=== PATIENT | female | born 1970 | race Caucasian/White ===

== ENCOUNTER → 2020-11-29 16:02 | Outpatient (CLI) | payer OTHER, SELFPAY ==
--- NOTE | ~2020-11-29 | XR_ITS ---
EXAMINATION: XR lumbar spine 6V w bending EXAM DATE: 11/29/2020 17:10 INDICATION: Low back pain, more on the left side. TECHNIQUE: Lumber spine frontal, lateral, bilateral oblique projections. Coned down frontal and lat eral L5-S1 lumbar projections for interpretation. Additional lateral flexion and lateral extension p rojections obtained. There are no prior studies for comparison. FINDINGS: There is no spondylolysis. There is mild to moderate lumbar facet arthropathy. Mild disc di sease L3-4 and L4-5. There are no acute fractures identified. No erosive change. The lumbar vertebral bodies are aligned on all 3 lateral projections. Sacrum, sacroiliac joints, sacr al arcuate lines are intact. Paraspinal soft tissue is unremarkable. IMPRESSION: Mild to moderate lumbar facet arthropathy. Mild mid lumbar disc disease. Reviewed, dictated and finalized at location A. GEMENT TRAINEE IMPRESSION: Mild to moderate lumbar facet arthropathy. Mild mid lumbar disc di sease.
== END ==
PROVIDERS: PCP Family Medicine; Visit Provider Nurse Practitioner Adult Health
DX: M54.5 Low back pain (principal); M51.36 Other intervertebral disc degeneration, lumbar region
CPT/HCPCS: 72114

== ENCOUNTER 2021-01-04 09:31 | Outpatient (CLI) | payer OTHER, SELFPAY ==
--- NOTE | ~2021-01-04 | MM_ITS ---
EXAMINATION: MM screening [facility] BI w opal HISTORY: Screening mammogram TECHNIQUE: Craniocaudal and mediolateral oblique 3-D tomosynthesis images were obtained and synthetic 2-D images were generated. CAD analysis was submitted and interpreted. COMPARISON: 09/03/2010 BREAST PARENCHYMAL COMPOSITION: The breasts are heterogeneously dense, which may obscure small masses . FINDINGS: There is no evidence of suspicious mass, calcification, or architectural distortion to sugg est malignancy in either breast. There has been no suspicious interval change. IMPRESSION: 1. No mammographic evidence of malignancy. 2. Recommend routine screening mammography in one year. BI-RADS Category 1: Negative Reviewed, dictated and finalized at location A.
== END 2021-01-04 09:32 | disposition home or self-care (01) ==
LOC: ANHIMG 09:34
PROVIDERS: PCP Family Medicine; Visit Provider Obstetrics & Gynecology
DX: Z12.31 Encounter for screening mammogram for malignant neoplasm of breast (principal)
CPT/HCPCS: 77063; 77067

== ENCOUNTER 2021-01-23 09:51 | Outpatient (CLI) | payer OTHER, SELFPAY ==
--- NOTE | ~2021-01-23 | DEXA_ITS ---
Bone Density Report Name: Bette Chi Age: 50 Sex: Female Ethnicity: White Date of : 1970 Indication: height loss; prior fracture; Referring Provider: VALERIE TOWNSEND Study: Bone densitometry was performed. Exam Date: January 23, 2021 Accession number: [id number] Bone Density: Region BMD T-score Z-score Classification AP Spine (L1-L4) 1.236 1.7 2.6 Normal Femoral Neck (Left) 0.894 0.4 1.3 Normal Total Hip (Left) 0.980 0.3 0.9 Normal Total Hip Bilateral Avg 0.998 0.5 1.0 Normal Femoral Neck (Right) 0.931 0.7 1.6 Normal Total Hip (Right) 1.014 0.6 1.1 Normal World Health Organization criteria for BMD impression classify patients as: Normal (T-score at or above -1.0), Osteopenia (T-score between -1.0 and -2.5), or Osteoporosis (T-score at or below -2.5). 10-year Fracture Risk: FRAX not reported because: Premenopausal woman All T-scores for Spine Total, Hip Total, Femoral Neck at or above -1.0 Previous Exams: Region Exam Age BMD T-score BMD Change BMD Change Date g/cm2 vs Baseline vs Previous AP Spine(L1-L4) 01/23/2021 50 1.236 1.7 0.001(0.1%)# 0.001(0.1%)# 07/18/2008 37 1.235 1.7 Total Hip(Left) 01/23/2021 50 0.980 0.3 -0.025(-2.5%)# -0.025(-2.5%)# 07/18/2008 37 1.005 0.5 Total Hip(Right) 01/23/2021 50 1.014 0.6 -0.010(-1.0%)# -0.010(-1.0%)# 07/18/2008 37 1.024 0.7 *Denotes significance at 95% confidence level, LSC for AP Spine = 0.022 g/cm2, LSC for Total Hip = 0.027 g/cm2 Clinical Information Provided by Patient: Has had a low trauma fracture Has used the following medications: Vitamin D Patient maximum height was 67 Drinks caffeinated beverages Onset of menses at age 10 Premenopausal Number of children 3 Impression: The patient's bone mass is within expected range for age, gender and ethnicity. The patient has risk factors, including: previous fracture. No significant bone loss was observed. Discussion: BONE DENSITY IS WITHIN EXPECTED LIMITS FOR AGE, SEX AND RACE. Bone density is within expected limits for age, sex and race at all sites measured. The patient should follow a healthful lifestyle (good nutrition with adequate calcium and vitamin D, and appropriate weight-bearing exercise). Follow-Up: Consider repeating this study in 5 years or sooner if there is some new clinical indication. Reported by: MARANDA 01/23/2021 10:22:00 AM. Rev
== END 2021-01-23 09:52 | disposition home or self-care (01) ==
LOC: ANHIMG 09:52
PROVIDERS: PCP Family Medicine; Visit Provider Obstetrics & Gynecology
DX: R29.890 Loss of height (principal)
CPT/HCPCS: 77080

== ENCOUNTER → 2021-02-01 00:42 | Outpatient (CLI) | payer OTHER, SELFPAY ==
[2021-02-01 21:02] LABS: SARS-CoV-2 RNA PCR Negative
== END ==
PROVIDERS: PCP Family Medicine; Visit Provider Internal Medicine Gastroenterology
DX: Z01.812 Encounter for preprocedural laboratory examination (principal); Z20.822 Contact with and (suspected) exposure to COVID-19
CPT/HCPCS: C9803; U0003; U0005

== ENCOUNTER 2021-02-04 00:33 | Day surgery (SDC) | payer OTHER, SELFPAY ==
[2021-01-23 16:02] VITALS: BMI 27.1
[2021-02-04 06:20] VITALS: BP 120/76; PULSE 130; RESP 20; TEMP 36.5; O2SAT 99; BMI 27.0
[2021-02-04] MEDS: LACTATED RINGERS 1,000 ML 150 ML IV CONT (06:49)
--- NOTE | 2021-02-04 06:56 | P.HP_ITS ---
History of Present Illness History of Present Illness Consent: Risks, benefits, and alternatives have been discussed and questions answered. Patient agrees to proceed with procedure. Chief complaint: neoplasm screening Narrative: Bette Chi is a 50 year old female referred for colon cancer screening. There is no family history of colon cancer. Recently, while taking Flexeril, she became somewhat constipated resulting in a hemorrhoid flare up. Review of Systems Review of Systems: All systems reviewed & are unremarkable except as noted in HPI and below PMFSH Past Medical History Medical History Gestational diabetes No active medical problems Surgical History Surgical History H/O removal of cyst neck History of delivery 1987 Hx of tonsillectomy Family History Family History Father Diabetes mellitus Family history of hypercholesterolemia Hypertension Cerebrovascular accident Mother Cerebrovascular accident Social History Social History Smoking status: Never smoker Additional smoking assessment comments: pt only tried smoking back in her early high school days Alcohol intake: current Drinks per week: 3 Living arrangements: with family Additional occupation/education comments: Registered Nurse Gender identity (if verbalized by the patient): Female Spiritual care concerns: No Meds Home Medications and Allergies Home Medications Medication Instructions Recorded Confirmed Type acetaminophen 325 mg capsule 325 mg PO Q6H PRN 08/02/20 01/23/21 History cholecalciferol (vitamin D3) 25 25 mcg PO DAILY 08/02/20 01/23/21 History mcg (1,000 unit) capsule loratadine 10 mg tablet 10 mg PO DAILY 08/02/20 01/23/21 History mecobalamin (vitamin B12) 1,000 1,000 mcg PO DAILY 08/02/20 01/23/21 History mcg chewable tablet multivitamin,[id number]-uzic-[id number] 1 tablet PO DAILY 08/02/20 01/23/21 History naproxen 250 mg tablet 250 mg PO BID PRN 08/02/20 01/23/21 History cyclobenzaprine 10 mg tablet 10 mg PO TID PRN #90 tablet 01/17/21 01/23/21 Rx docusate sodium 100 mg PO DAILY PRN 01/23/21 01/23/21 History Allergies Allergy/AdvReac Type Severity Reaction Status Date / Time No Known Allergies Verified 02/04/21 06:19 Vital Signs Vital Signs - 24 hr 02/04/21 06:20 Temperature 36.5 C Pulse Rate 130 H Respiratory Rate 20 Blood Pressure 120/76 Pulse Oximetry 99 Exam 2 Resp: Auscultation: clear to auscultation bilaterally Cardio: Rate: regular rate Rhythm: regular rhythm GI: GI Palp: Yes Soft to palpation and No Tenderness to palpation present (GI) Assessment and Plan Assessment and plan (1) Colon cancer screening: Code(s): Z12.11 - Encounter for screening for malignant neoplasm of colon Status: Acute Assessment and Plan: Colonoscopy with possible biopsy or polypectomy or cautery or injection of substances.
--- NOTE | 2021-02-04 07:05 | WPDANESEPPF ---
Anes - Initial Pre Proc Eval Procedure: Operation Date: 02/04/21 07:30 Proposed Procedures p Screening Colonoscopy - Delroy Hogan MD Date/Time: 02/04/21 07:05 Surgeon: Delroy Hogan MD Pre Op Diagnosis: neoplasm screening Patient Data Age: 50 Gender: F Height: 5 ft 5 in Weight: 73.6 kg Last Vital Signs Temp 97.7 F 02/04/21 06:20 Pulse 130 H 02/04/21 06:20 Resp 20 02/04/21 06:20 BP 120/76 02/04/21 06:20 Pulse Ox 99 02/04/21 06:20 Allergies Allergy/AdvReac Type Severity Reaction Status Date / Time No Known Allergies Verified 02/04/21 06:19 Home Medications Medication Instructions Recorded Confirmed Type acetaminophen 325 mg capsule 325 mg PO Q6H PRN 08/02/20 01/23/21 History cholecalciferol (vitamin D3) 25 25 mcg PO DAILY 08/02/20 01/23/21 History mcg (1,000 unit) capsule loratadine 10 mg tablet 10 mg PO DAILY 08/02/20 01/23/21 History mecobalamin (vitamin B12) 1,000 1,000 mcg PO DAILY 08/02/20 01/23/21 History mcg chewable tablet multivitamin,[id number]-kxie-jvlrnfyc 1 tablet PO DAILY 08/02/20 01/23/21 History naproxen 250 mg tablet 250 mg PO BID PRN 08/02/20 01/23/21 History cyclobenzaprine 10 mg tablet 10 mg PO TID PRN #90 tablet 01/17/21 01/23/21 Rx docusate sodium 100 mg PO DAILY PRN 01/23/21 01/23/21 History Patient hx anesthesia problems: none Family hx anesthesia problems: none PMFSH Past Medical History Medical History Gestational diabetes No active medical problems Surgical History Surgical History H/O removal of cyst neck History of delivery 1988 Hx of tonsillectomy Family History Family History Father Diabetes mellitus Family history of hypercholesterolemia Hypertension Cerebrovascular accident Mother Cerebrovascular accident Social History Social History Smoking status: Never smoker Additional smoking assessment comments: pt only tried smoking back in her early high school days Alcohol intake: current Drinks per week: 3 Living arrangements: with family Additional occupation/education comments: Registered Nurse Gender identity (if verbalized by the patient): Female Spiritual care concerns: No Anes - Eval Final PreProcedure Day of Procedure 02/04/21 07:05 Patient weight: normal Heart: regular rate and rhythm Lungs: clear to auscultation Airway: Mallampati scale class II Neurological: alert and oriented Last oral intake: >/= 8 hours ASA classification: I Emergent: no Anesthetic plan: proceed Anesthesia type and monitoring: general GIVS and standard monitoring Informed Consent: The patient's anesthetic plan and its attendant risks and benefits were discussed with the patient/family/POA. Questions were solicited and answers provided to the satisfaction of the patient/family/POA.
[2021-02-04 07:23] VITALS: PULSE 107
[2021-02-04 07:57] VITALS: BP 109/53; PULSE 96; RESP 16; O2SAT 98
[2021-02-04 08:07] VITALS: BP 93/63; PULSE 84; RESP 16; O2SAT 100
[2021-02-04 08:17] VITALS: BP 92/68; PULSE 82; RESP 18; O2SAT 100
== END 2021-02-04 08:34 | disposition home or self-care (01) ==
PROVIDERS: PCP Family Medicine; Visit Provider Internal Medicine Gastroenterology
PROC: 0DJD8ZZ Inspection of Lower Intestinal Tract, Via Natural or Artificial Opening Endoscopic (ICD-10-PCS; CPT 45378; principal; 2021-02-04 07:30)
DX: Z12.11 Encounter for screening for malignant neoplasm of colon (principal); K64.8 Other hemorrhoids
CPT/HCPCS: 45378; J2001; J2704; J7120

== ENCOUNTER 2022-08-28 09:41 | Outpatient (CLI) | payer OTHER, SELFPAY ==
--- NOTE | 2022-08-28 11:30 | NEURO_ITS ---
Impression: # Complains of numbness of right hand. # Carpal Tunnel Syndrome with more involvement of sensory component particularly to the right index finger. # Normal needle/EMG exam. Motor Nerve Conduction Upper Extremities Median Nerve Conduction Velocity (m/sec) Terminal Latency (msec) Response Voltage(mV) Elbow-Wrist Wrist Elbow Wrist Right 44 3.5 2 4 Left Ulnar Nerve Conduction Velocity (m/sec) Terminal Latency (msec) Response Voltage(mV) Above Elbow Below Elbow Wrist Above Elbow Below Elbow Wrist Right 54 2.0 6 7 Left F-Wave Latency Median (ms) Ulnar (ms) Right 28.2 25.9 Left Sensory Nerve Conduction Upper Extremities Median Nerve Stimulation Terminal Latency (msec) Wrist/Digit Response Voltage (uV) Wrist Right NR/5.9 NR/88 Left Ulnar Nerve Stimulation Terminal Latency (msec) Wrist/Digit Response Voltage (uV) Wrist Right 2.1 55 Left Radial Nerve Terminal Latency (msec) Response Voltage(mV) Right 1.9 26 Left Left Right Muscles Examined Fibrillation Fasciculation Scarcity Voltage Duration Left Right Left Right Left Right Left Right Left Right X Deltoid X Biceps X Brachioradialis X Triceps X Pronator Teres X Ext Indicis X Ext Digitorum X Abd Poll Brev X 1st Dorsal Interosseus X Abd Dig MIn MTDD
== END 2022-08-28 09:42 | disposition home or self-care (01) ==
LOC: ANHNEURO 09:42
PROVIDERS: PCP Family Medicine; Visit Provider Nurse Practitioner
DX: R20.0 Anesthesia of skin (principal)
CPT/HCPCS: 95886; 95909

== ENCOUNTER 2022-12-22 13:12 | Outpatient (CLI) | payer OTHER, SELFPAY ==
[2022-12-22 14:02] LABS: Hematocrit 38.1 % (37.0-47.0); Hemoglobin 12.7 g/dL (12.0-15.0); Mean Corpuscular HGB Conc 33.3 g/dl (32-36); Mean Corpuscular Hemoglobin 32.8 pg (26-34); Mean Corpuscular Volume 98.4 fl (80-100); Mean Platelet Volume 9.9 fl (7.4-10.4); Platelet Count Result 241 k/mm3 (150-375); Red Blood Count 3.87 M/mm3 (4.2-5.4); Red Cell Distribution Width 12.3 % (11.5-14.5); White Blood Count 5.7 K/mm3 (4.5-10.0)
[2022-12-22 14:20] LABS: Alanine Aminotransferase 31 U/L (6-35); Albumin Level 4.6 g/dL (3.5-5.1); Alkaline Phosphatase 90 U/L (38-126); Anion Gap 5 mmol/L (8-16); Aspartate Amino Transferase 31 U/L (14-36); Bilirubin,Total 0.4 mg/dL (0.2-1.3); Blood Urea Nitrogen 11 mg/dL (7-17); Calcium 8.9 mg/dL (8.4-10.2); Carbon Dioxide 30 mmol/L (22-30); Chloride 102 mmol/L (98-107); Cholesterol 235 mg/dL (0-200); Estimated Glomerular Filt Rate > 60; Glucose 93 mg/dL (65-110); HDL Direct 61 mg/dL; Potassium 3.8 mmol/L (3.4-5.0); Sodium 137 mmol/L (137-145); Triglycerides 121 mg/dL (<150)
[2022-12-22 14:30] LABS: LDL Cholesterol Direct 124 mg/dL
[2022-12-22 14:38] LABS: Vitamin D 25 Hydroxy 98.8 ng/mL
== END 2022-12-22 13:13 | disposition home or self-care (01) ==
LOC: ANHLAB 13:14
PROVIDERS: PCP Family Medicine; Visit Provider Nurse Practitioner
DX: E55.9 Vitamin D deficiency, unspecified (principal); Z13.6 Encounter for screening for cardiovascular disorders; F41.8 Other specified anxiety disorders; Z13.220 Encounter for screening for lipoid disorders
CPT/HCPCS: 36415; 80053; 80061; 82306; 84443; 85027

== ENCOUNTER 2023-03-20 07:57 | Outpatient (CLI) | payer OTHER, SELFPAY ==
--- NOTE | ~2023-03-20 | MM_ITS ---
EXAMINATION: MM screening [facility] BI w opal HISTORY: Screening mammogram TECHNIQUE: Craniocaudal and mediolateral oblique 3-D tomosynthesis images were obtained and synthetic 2-D images were generated. CAD analysis was submitted and interpreted. COMPARISON: 01/04/2021, 09/03/2010 BREAST PARENCHYMAL COMPOSITION:The breasts are heterogeneously dense, which may obscure small masses. FINDINGS: There is a probable stable low-density outer left subareolar mass. No suspicious mass, calc ification, or architectural distortion are identified in either breast to suggest malignancy. There h as been no suspicious interval change. IMPRESSION: No mammographic evidence of malignancy. Recommend routine screening mammography in one year. BI-RADS Category 2: Benign finding(s). Reviewed, dictated and finalized at location .
== END 2023-03-20 07:58 | disposition home or self-care (01) ==
LOC: ANHIMG 07:58
PROVIDERS: PCP Family Medicine; Visit Provider Obstetrics & Gynecology
DX: Z12.31 Encounter for screening mammogram for malignant neoplasm of breast (principal)
CPT/HCPCS: 77063; 77067

== ENCOUNTER 2023-03-26 09:44 | Outpatient (CLI) | payer OTHER, SELFPAY | END 2023-03-26 09:45 | disposition home or self-care (01) | LOC: ANHAUDIO 09:44 | PROVIDERS: PCP Family Medicine; Visit Provider Family Medicine | DX: H91.90 Unspecified hearing loss, unspecified ear (principal) | CPT/HCPCS: 92557; 92567 ==

== ENCOUNTER 2023-05-19 10:00 | Outpatient (RCR) | payer OTHER, SELFPAY | END 2023-05-19 23:59 | disposition home or self-care (01) | LOC: ANHAUDIO 10:00 | PROVIDERS: PCP Family Medicine; Visit Provider Family Medicine | DX: Z46.1 Encounter for fitting and adjustment of hearing aid (principal) | CPT/HCPCS: 99199; V5261 ==

== ENCOUNTER 2023-06-03 08:54 | Outpatient (CLI) | payer OTHER, SELFPAY ==
[2023-06-03 09:56] LABS: Alanine Aminotransferase 34 U/L (6-35); Albumin Level 4.2 g/dL (3.5-5.1); Alkaline Phosphatase 80 U/L (38-126); Anion Gap 4 mmol/L (8-16); Aspartate Amino Transferase 28 U/L (14-36); Bilirubin,Total 0.4 mg/dL (0.2-1.3); Blood Urea Nitrogen 14 mg/dL (7-17); Calcium 8.5 mg/dL (8.4-10.2); Carbon Dioxide 25 mmol/L (22-30); Chloride 106 mmol/L (98-107); Cholesterol 227 mg/dL (0-200); Estimated Glomerular Filt Rate > 60; Glucose 91 mg/dL (65-110); HDL Direct 63 mg/dL; Potassium 4.3 mmol/L (3.4-5.0); Sodium 135 mmol/L (137-145); Triglycerides 99 mg/dL (<150)
[2023-06-03 10:07] LABS: LDL Cholesterol Direct 127 mg/dL
[2023-06-03 10:25] LABS: Thyroid Stimulating Hormone 0.852 uIU/mL (0.465-4.680)
== END 2023-06-03 08:55 | disposition home or self-care (01) ==
PROVIDERS: PCP Family Medicine; Visit Provider Family Medicine
DX: E78.5 Hyperlipidemia, unspecified (principal); R63.5 Abnormal weight gain
CPT/HCPCS: 36415; 80053; 80061; 84443

== ENCOUNTER 2023-11-26 11:07 | Outpatient (CLI) | payer OTHER, SELFPAY ==
--- NOTE | ~2023-11-26 | XR_ITS ---
Left foot Technique: AP, oblique, and lateral views were obtained. Clinical History: Pain Findings: No acute fracture or dislocation is seen. Osseous alignment is anatomic. Joint spaces are p reserved without erosive or degenerative change. Soft tissues are unremarkable. Impression: Unremarkable left foot radiographs. Reviewed, dictated and finalized at location . Y GUN REPAIRER Impression: Unremarkable left foot radiographs.
--- NOTE | ~2023-11-26 | XR_ITS ---
Right foot Technique: AP, oblique, and lateral views were obtained. Clinical History: Pain Findings: No acute fracture or dislocation is seen. There is severe degenerative change of the first MTP joint. Soft tissues are unremarkable. 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 Reviewed, dictated and finalized at location . 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
--- NOTE | ~2023-11-26 | XR_ITS ---
Left ankle Technique: AP, oblique, and lateral views were obtained. Clinical History: Pain Findings: No acute fracture or dislocation is seen. Osseous alignment is anatomic. Ankle mortise and other visualized joint spaces are preserved. Soft tissues are otherwise unremarkable. Impression: Unremarkable left ankle. Reviewed, dictated and finalized at location . MOTIVE SERVICE ADVISOR Impression: Unremarkable left ankle.
== END 2023-11-26 11:08 ==
PROVIDERS: PCP Family Medicine; Visit Provider Family Medicine
DX: M25.572 Pain in left ankle and joints of left foot (principal); M79.672 Pain in left foot; M19.071 Primary osteoarthritis, right ankle and foot
CPT/HCPCS: 73610; 73630

== ENCOUNTER 2023-12-04 08:49 | Outpatient (CLI) | payer OTHER, SELFPAY ==
[2023-12-04 09:42] LABS: Hematocrit 37.3 % (37.0-47.0); Hemoglobin 11.9 g/dL (12.0-15.0); Mean Corpuscular HGB Conc 31.9 g/dl (32-36); Mean Corpuscular Hemoglobin 32.2 pg (26-34); Mean Corpuscular Volume 101.1 fl (80-100); Mean Platelet Volume 10.1 fl (7.4-10.4); Platelet Count Result 238 k/mm3 (150-375); Red Blood Count 3.69 M/mm3 (4.2-5.4); Red Cell Distribution Width 12.3 % (11.5-14.5); White Blood Count 4.9 K/mm3 (4.5-10.0)
[2023-12-04 09:59] LABS: Alanine Aminotransferase 24 U/L (6-35); Alkaline Phosphatase 89 U/L (38-126); Anion Gap 3 mmol/L (8-16); Aspartate Amino Transferase 26 U/L (14-36); Bilirubin,Total 0.4 mg/dL (0.2-1.3); Blood Urea Nitrogen 13 mg/dL (7-17); Calcium 8.7 mg/dL (8.4-10.2); Carbon Dioxide 30 mmol/L (22-30); Chloride 105 mmol/L (98-107); Cholesterol 214 mg/dL (0-200); Estimated Glomerular Filt Rate > 60; Glucose 97 mg/dL (65-110); HDL Direct 55 mg/dL; Potassium 4.1 mmol/L (3.4-5.0); Sodium 138 mmol/L (137-145); Triglycerides 70 mg/dL (<150)
[2023-12-04 10:11] LABS: LDL Cholesterol Direct 123 mg/dL
== END 2023-12-04 08:50 | disposition home or self-care (01) ==
PROVIDERS: PCP Family Medicine; Visit Provider Family Medicine
DX: E66.9 Obesity, unspecified (principal); E78.5 Hyperlipidemia, unspecified
CPT/HCPCS: 36415; 80053; 80061; 84443; 85027

== ENCOUNTER 2024-03-29 09:15 | Outpatient (CLI) | payer OTHER, SELFPAY ==
[2024-03-29 10:21] LABS: Hemoglobin 11.9 g/dL (12.0-15.0); Mean Corpuscular HGB Conc 32.2 g/dl (32-36); Mean Corpuscular Hemoglobin 33.2 pg (26-34); Mean Corpuscular Volume 103.4 fl (80-100); Platelet Count Result 257 k/mm3 (150-375); Red Blood Count 3.58 M/mm3 (4.2-5.4); Red Cell Distribution Width 12.6 % (11.5-14.5); White Blood Count 5.7 K/mm3 (4.5-10.0)
[2024-03-29 10:33] LABS: Iron 53 ug/dL (37-170)
[2024-03-29 10:46] LABS: Percent Iron Saturation 16 % (20-50)
[2024-03-29 11:55] LABS: Alanine Aminotransferase 56 U/L (6-35); Albumin Level 4.3 g/dL (3.5-5.1); Alkaline Phosphatase 95 U/L (38-126); Anion Gap 7 mmol/L (4-12); Aspartate Amino Transferase 37 U/L (14-36); Bilirubin,Total 0.4 mg/dL (0.2-1.3); Blood Urea Nitrogen 19 mg/dL (7-17); Calcium 8.9 mg/dL (8.4-10.2); Carbon Dioxide 27 mmol/L (22-30); Chloride 105 mmol/L (98-107); Cholesterol 235 mg/dL (0-200); Estimated Glomerular Filt Rate > 60; Glucose 98 mg/dL (65-110); HDL Direct 61 mg/dL; Potassium 4.2 mmol/L (3.4-5.0); Sodium 139 mmol/L (137-145); Triglycerides 77 mg/dL (<150)
[2024-03-29 12:07] LABS: LDL Cholesterol Direct 144 mg/dL
[2024-03-29 13:10] LABS: Folic Acid > 20.0 ng/mL (2.76->20); Vitamin B12 > 1000.0 pg/mL (239-931)
== END 2024-03-29 09:16 | disposition home or self-care (01) ==
LOC: ANHLAB 09:16
PROVIDERS: PCP Family Medicine; Visit Provider Family Medicine
DX: D64.9 Anemia, unspecified (principal); Z79.899 Other long term (current) drug therapy; E66.9 Obesity, unspecified; E78.5 Hyperlipidemia, unspecified; F41.8 Other specified anxiety disorders
CPT/HCPCS: 36415; 80053; 80061; 82607; 82728; 82746; 83540; 83550; 84443; 85027

== ENCOUNTER 2024-05-04 16:24 | Outpatient (CLI) | payer OTHER, SELFPAY ==
--- NOTE | ~2024-05-04 | XR_ITS ---
XR elbow LT min 3V 05/04/2024 16:53 INDICATION: Left elbow pain PROCEDURE: 4 views left elbow COMPARISON: No prior studies for comparison. FINDINGS: Fracture, dislocation or subluxation is not identified. No significant joint effusion. The soft tissues appear within normal limits. No foreign bodies are identified. IMPRESSION: 1: NO ACUTE BONE OR JOINT ABNORMALITY IDENTIFIED. Reviewed, dictated and finalized at location B.
== END 2024-05-04 16:25 ==
LOC: GOSHIMG 16:25
PROVIDERS: PCP Family Medicine; Visit Provider Nurse Practitioner
DX: M25.522 Pain in left elbow (principal)
CPT/HCPCS: 73080

== ENCOUNTER 2024-11-11 21:20 | Emergency (ER) | payer OTHER, SELFPAY ==
--- OUTSIDE RECORDS SUMMARY | 2024-11-11 21:21 | XMS_ITS | Clinical Summary ---
Author Organization [facility] Address [address] [place] [address]. [place] [address] [place] [address] Care Team Providers Care Turbine Subassembler Name Role Phone Unavailable Primary Care Provider Unavailabl e Encounters Date Type Department Care Team Description 10/07/2024 3:52 PM ARMHOLE SEWER - 10/07/2024 11:59 PM ARMHOLE SEWER Hospital Encounter [facility] [place] [address] Juan José Reid MD Discharge Disposition: Home or Self Care (Routine Discharge) from Last 3 Months Social History Tobacco Use Types Packs/Day Years Used Date Smoking Tobacco: Never Assessed Comments Unknown Sex and Gender Information Value Date Recorded Sex Assigned at Not on file Legal Sex Female 3:50 PM ARMHOLE SEWER Gender Identity Not on file Sexual Orientation Not on file Plan of Treatment Health Maintenance Due Date Last Done Comments Cervical Cancer Screening Pa p Smear (Age 30 to 64) Every 3 Years 1970 Colorectal Cancer Screening Colonoscopy (10 Years) 1968 Annual Physical 1971 Hepatitis C 1986 DTaP, Tdap and Td Vaccines ( 1 - Tdap) 1987 Hepatitis B Vaccines (1 of 3 - 19+ 3-dose series) 1987 Cervical Cancer Screening Pa p with HPV Testing (Age 30 to 64) Every 5 Years 1998 Cervical Cancer Screening with HPV 1998 Mammogram Screening 2008 Zoster Vaccines (1 of 2) 2018 COVID-19 Vaccine (2023-2 5 season) 2024 Influenza Adult (#1) 2024 Meningococcal B Vaccine Aged Out No l onger eligible based on patient's age to complete this topic Meningococcal Vaccine Aged Out No donald kuldeep eligible based on patient's age to complete this topic Pneumococcal Vaccine: Pediat rics (0 to 5 Years) and At-Risk Patients (6 to 64 Years) Aged Out No longer eligible b ased on patient's age to complete this topic RSV Immunizations Under 20 Months Aged Out No longer eligible based on patient's age to complete this topic Procedures Procedure Name Priority Date/Time Associated Diagnosis Comments PATHOLOGY Routine 10/07/2024 12:00 AM ARMHOLE SEWER from Last 3 Months Results * Pathology (10/07/2024 12:00 AM ARMHOLE SEWER) PATHOLOGY [facility] ? Department of Laboratory Medicine ?[address] [facility] ?[place] [address] ? , extension [phone] ? Pathology Report ? Surgical Pathology Report Name: LEE CHI ? Specimen #: [id number] Age: 2 1970 (Age: 53) ? Location: [facility] Sex: F ?Procedure Date: 10/07/2024 Hospital #: [id number] ?Date Received: 10/10/2024 Date Reported: 10/13/2024 Provider: JUAN JOSÉ REID MD Source: Mouth, cyst Clinical History: Multiple oral lesions. FINAL DIAGNOSIS: Oral lesion, excision: ? 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 -Negative for cyst or malignancy Deeper levels performed on both blocks. IC: JOY Gross Description: Received in formalin, labeled with the patient's name and date of and as oral lesions are 2 pieces of nodular white-nino tissue 0.3 and 0.4 cm. ??The base is identified on one of the pieces and inked black. ??This piece is bisected. ??These pieces are entirely submitted in cassette 1. ??Also within the specimen container are 2 additional firm white nodules 0.5 and 0.7 cm. ??The base is identified and inked black on both of these pieces. ??They are both bisected and entirely submitted in cassette 2. Gross examination (when applicable) was performed at [facility], [address] [place] [address]. This case was interpreted and signed out at [facility], [address] [place] [address]. ?? Electronically Signed Out ? ELSI TAPIA MD [facility] 10/07/2024 10/10/2024 12: 10 PM ARMHOLE SEWER Comment:Mouth, cyst Juan José Reid MD PATHOLOGY/CYTOLOGY ORDERABLES Final Result [facility] [address] [place] [address], [id number] from Last 3 Months
[2024-11-11 21:25] VITALS: BP 141/78; PULSE 115; RESP 19; TEMP 36.6; O2SAT 100
[2024-11-11 21:38] LABS: Basophils Percent Auto 0.3 % (0.2-1.2); Eosinophils Absolute Auto 0.6 K/mm3 (0-0.3); Hematocrit 38.1 % (37.0-47.0); Hemoglobin 12.7 g/dL (12.0-15.0); Immature Granulocyte Absolute 0.06 K/mm3 (0.00-0.031); Immature Granulocyte Percent A 0.4 % (0-0.5); Lymphocytes Absolute Auto 1.05 K/mm3 (0.9-3.2); Lymphocytes Percent Auto 7.4 % (18.3-44.2); Mean Corpuscular HGB Conc 33.3 g/dl (32-36); Mean Corpuscular Hemoglobin 33.2 pg (26-34); Mean Corpuscular Volume 99.7 fl (80-100); Mean Platelet Volume 9.5 fl (7.4-10.4); Monocytes Absolute Auto 0.6 K/mm3 (0.1-0.6); Monocytes Percent Auto 4.3 % (2.6-8.5); Neutrophils Absolute Auto 11.8 K/mm3 (1.3-6.7); Neutrophils Percent Auto 83.6 % (45.5-73.1); Platelet Count Result 241 k/mm3 (150-375); Red Blood Count 3.82 M/mm3 (4.2-5.4); Red Cell Distribution Width 11.9 % (11.5-14.5); White Blood Count 14.1 K/mm3 (4.5-10.0)
[2024-11-11 21:49] LABS: Alanine Aminotransferase 35 U/L (6-35); Albumin Level 4.5 g/dL (3.5-5.1); Alkaline Phosphatase 129 U/L (38-126); Anion Gap 10 mmol/L (4-12); Aspartate Amino Transferase 26 U/L (14-36); Bilirubin,Total 0.6 mg/dL (0.2-1.3); Blood Urea Nitrogen 13 mg/dL (7-17); Calcium 9.7 mg/dL (8.4-10.2); Carbon Dioxide 27 mmol/L (22-30); Chloride 100 mmol/L (98-107); Estimated CRCL calculation 109 ml/min; Estimated Glomerular Filt Rate > 60; Glucose 111 mg/dL (65-110); Lipase 52 U/L (23-300); Potassium 3.8 mmol/L (3.4-5.0); Sodium 137 mmol/L (137-145)
[2024-11-11 22:59] LABS: BEDSIDEPREGUCG Negative (Negative)
[2024-11-11 23:08] LABS: Add Urine Microscopic? YES; Appearance Urine Clear (Clear); Bacteria Urine None Seen /hpf; Bilirubin Urine Negative (Negative); Blood Urine Negative (Negative); Color Urine Yellow (Yellow); Glucose Urine UA Negative (Negative); Ketones Urine Negative (Negative); Leukocyte Esterase Ur Trace LEU/UL (Negative); Nitrate Urine Negative (Negative); Non Pathogenic Casts 0-2; Protein Urine Negative (Negative); RBC Urine 0-2 /hpf (0-2); Specific Grav Ur 1.008 (1.001-1.035); Squamous Epithelial Cell Urine Occasional /hpf (Few); Urobilinogen Urine 0.2 mg/dL (<2.0); WBC Urine 0-5 /hpf (0-3); pH Urine 6.5 (5.0-9.0)
--- NOTE | 2024-11-12 00:56 | ED.ABDPAIN ---
HPI - Abdominal Pain General Chief Complaint: Abdominal Pain Stated Complaint: Gallbladder Time Seen by Provider: 11/12/24 00:32 History of Present Illness HPI narrative: Patient is a 54-year-old female who presents ER with epigastric pain. Sudden onset this afternoon. Lasted for several hours. Mild improvement after taking a muscle relaxer. Associated with nausea. Has history of gallstones I have not been giving her issues since 2007. No fevers or chills or sweats. No diarrhea. Patient does note that she had a rash for which she was on a prednisone taper that she recently finished. No worsening of the rash. There are scabs, she reports she picks regularly. Mainly located on abdomen, back, and around the hairline of the scalp posteriorly. Related Data Home Medications ?Medication ?Instructions ?Recorded ?Confirmed ?Last Taken ?Type cholecalciferol (vitamin D3) 25 25 mcg PO DAILY 08/02/20 11/02/24 02/02/21 History mcg (1,000 unit) capsule loratadine 10 mg tablet (Claritin) 10 mg PO DAILY 08/02/20 11/02/24 02/02/21 History mecobalamin (vitamin B12) 1,000 1,000 mcg PO DAILY 08/02/20 11/02/24 02/02/21 History mcg chewable tablet multivitamin,zx-nfuh-ricinvne 1 tablet PO DAILY 08/02/20 11/02/24 02/02/21 History (Complete Multivitamin tablet) naproxen 250 mg tablet 250 mg PO BID PRN Back Pain 08/02/20 11/02/24 02/02/21 History docusate sodium 100 mg PO DAILY PRN Constipation 01/23/21 11/02/24 02/02/21 History Allergies Allergy/AdvReac Type Severity Reaction Status Date / Time No Known Allergies Allergy Verified 11/11/24 21:21 Review of Systems Review of Systems: All systems reviewed & are unremarkable except as noted in HPI and below Constitutional: Constitutional: Reports no additional constitutional complaints Cardiovascular: Cardiovascular: Reports no additional cardiovascular complaints Respiratory: Respiratory: Reports no additional respiratory complaints Gastrointestinal: Gastrointestinal: Reports no additional gastrointestinal complaints ON LICENSE OF [facility] Past Medical History Medical History Gestational diabetes No active medical problems Surgical History Surgical History H/O removal of cyst neck Hx of tonsillectomy History of delivery 1987 Family History Family History Father Diabetes mellitus Family history of hypercholesterolemia Hypertension Cerebrovascular accident Mother Cerebrovascular accident Social History Social History Smoking status: Never smoker Additional smoking assessment comments: pt only tried smoking back in her early high school days Alcohol intake: current Alcohol use details: social Substance use: never Lack of Transportation: No Lack of Food: Never True Current Housing: I Have Housing Concerned About Future Housing: No Difficulty Paying Gas/Electric Bills: No Difficulty Paying for Meds: No Currently Unemployed: No Education: Associate Degree Difficulty w/ Childcare or Family Care: No Living arrangements: with family Occupation/Education: occupation Additional occupation/education comments: Registered Nurse Gender identity (if verbalized by the patient): Female Spiritual care concerns: No Exam Narrative: GENERAL: Well-appearing, well-nourished, and in no acute distress. HEAD: Normocephalic, atraumatic. ENT: Mucous membranes moist. CHEST: Clear to auscultation. No respiratory distress. HEART: Regular rate and rhythm. Normal peripheral pulses. ABDOMEN: Soft, nontender, nondistended. EXTREMITIES: Normal range of motion. No edema. SKIN: Warm, dry, scabbing to old rash, no cellulitis or Homans. NEURO: Alert and oriented x3. PSYCH: Normal mood and affect. Course Course Emergency Course: Pain resolve on my evaluation. Suspect biliary colic. Mild white blood cell count elevation that could be from colic or from prednisone. Patient felt to have acute cholecystitis given exam. Recommend pain control, low-fat diet, follow-up with general surgery. Discussed return precautions. Vital Signs Vital signs: Vital Signs Temperature 98 F 11/11/24 21:25 Pulse Rate 115 H 11/11/24 21:25 Respiratory Rate 19 11/11/24 21:25 Blood Pressure 141/78 H 11/11/24 21:25 Pulse Oximetry 100 11/11/24 21:25 Oxygen Delivery Room Air 11/11/24 21:25 Temperature 98 F 11/11/24 21:25 Pulse Rate 115 H 11/11/24 21:25 Respiratory Rate 19 11/11/24 21:25 Blood Pressure 141/78 H 11/11/24 21:25 Pulse Oximetry 100 11/11/24 21:25 Oxygen Delivery Room Air 11/11/24 21:25 MDM - Abdominal Pain Lab Data 11/11/24 21:32 11/11/24 21:32 Labs: Lab Results 11/11/24 11/11/24 11/11/24 Range/Units 21:32 22:56 22:57 WBC 14.1 H (4.5-10.0) K/mm3 RBC 3.82 L (4.2-5.4) M/mm3 Hgb 12.7 (12.0-15.0) g/dL Hct 38.1 (37.0-47.0) % MCV 99.7 (80-100) fl MCH 33.2 (26-34) pg MCHC 33.3 (32-36) g/dl RDW 11.9 (11.5-14.5) % Plt Count 241 (150-375) k/mm3 MPV 9.5 (7.4-10.4) fl Immature Gran % (Auto) 0.4 (0-0.5) % Neut % (Auto) 83.6 H (45.5-73.1) % Lymph % (Auto) 7.4 L (18.3-44.2) % [place] % (Auto) 4.3 (2.6-8.5) % Eos % (Auto) 4.0 (0-4.4) % Baso % (Auto) 0.3 (0.2-1.2) % Lymph # (Auto) 1.05 (0.9-3.2) K/mm3 [place] # (Auto) 0.6 (0.1-0.6) K/mm3 Eos # (Auto) 0.6 H (0-0.3) K/mm3 Baso # (Auto) 0.0 (0.0-0.1) K/mm3 Abs Immat Gran (auto) 0.06 H (0.00-0.031) K/mm3 Absolute Neuts (auto) 11.8 H (1.3-6.7) K/mm3 Absolute Nucleated RBC 0.000 (0.0-0.012) K/mm3 Nucleated RBC % 0.0 (0.0-0.2) % Sodium 137 (137-145) mmol/L Potassium 3.8 (3.4-5.0) mmol/L Chloride 100 (98-107) mmol/L Carbon Dioxide 27 (22-30) mmol/L Anion Gap 10 (4-12) mmol/L BUN 13 D (7-17) mg/dL Creatinine 0.53 L (0.7-1.0) mg/dL Estim Creat Clear Calc 109 ml/min Estimated GFR > 60 (59 - ) Glucose 111 H (65-110) mg/dL Calcium 9.7 (8.4-10.2) mg/dL Total Bilirubin 0.6 (0.2-1.3) mg/dL AST 26 (14-36) U/L ALT 35 (6-35) U/L Alkaline Phosphatase 129 H (38-126) U/L Total Protein 8.0 (6.3-8.2) g/dL Albumin 4.5 (3.5-5.1) g/dL Lipase 52 (23-300) U/L Urine Color Yellow (Yellow) Urine Appearance Clear (Clear) Urine pH 6.5 (5.0-9.0) Ur Specific [place] 1.008 (1.001-1.035) Urine Protein Negative (Negative) mg/dL Urine Glucose (UA) Negative (Negative) mg/dL Urine Ketones Negative (Negative) mg/dL Ur Blood (Man) Negative (Negative) Urine Nitrate Negative (Negative) Urine Bilirubin Negative (Negative) Urine Urobilinogen 0.2 (<2.0) mg/dL Leukocyte Esterase Rfl Trace H (Negative) ADRIANE/UL Urine RBC 0-2 (0-2) /hpf Urine WBC 0-5 (0-3) /hpf Ur Squamous Epith Cells Occasional (Few) /hpf Urine Bacteria None seen /hpf Urine Casts 0-2 POC Urine HCG, Qual Negative (Negative) Discharge Plan Discharge Clinical Impression: Colicky epigastric pain Patient Disposition: Home, Self-Care Condition: Stable Instructions: Biliary Colic (ED), Low Fat Diet (ED) Additional Instructions: Return to the emergency department if you develop severe abdominal pain, severe nausea and vomiting to the point where you are unable to keep down fluids, if you develop chest pain or difficulty breathing, blood in your stool, dizziness or fainting, or if you develop any other new or concerning symptoms as these could be signs of more serious medical illness. Try to stay well hydrated. Patient Language: Cuban Prescriptions: New hydrocodone-acetaminophen 5-325 mg tablet 1 tablet PO Q6H PRN (Reason: pain) Qty: 10 0RF ondansetron 4 mg tablet,disintegrating 4 mg PO Q6H PRN (Reason: nausea and vomiting) Qty: 10 0RF No Action Complete Multivitamin Tablet 1 tablet PO DAILY mecobalamin (vitamin B12) 1,000 mcg tablet,chewable 1,000 mcg PO DAILY cholecalciferol (vitamin D3) 25 mcg (1,000 unit) capsule 25 mcg PO DAILY loratadine [Claritin] 10 mg tablet 10 mg PO DAILY naproxen 250 mg tablet 250 mg PO BID PRN (Reason: Back Pain) docusate sodium 100 mg PO DAILY PRN (Reason: Constipation) paroxetine HCl 30 mg tablet See Rx Instructions .ROUTE .COMPLEX Qty: 90 1RF Dose Instruction: TAKE 1 TABLET BY MOUTH DAILY Rx Instructions: TAKE 1 TABLET BY MOUTH DAILY cyclobenzaprine 10 mg tablet 10 mg PO DAILY PRN (Reason: muscle spasm) Qty: 90 1RF phentermine 30 mg capsule 30 mg PO QAM Qty: 30 1RF Rx Instructions: must administer 2 hours after breakfast prednisone 10 mg tablet 10 mg PO DIRECTED Qty: 42 0RF Rx Instructions: see taper instructions: Take 6 pills daily for two days, then 5 pills daily for two days, then 4 pills daily for two days, then 3 pills daily for two days, then 2 pills daily for two days, then 1 pill daily for two days, the stop. Follow-up/Referrals: Alicia Garrett MD [Physician] - 1 Week Melisa Gates DO [Primary Care Provider] - 1 Week
[2024-11-12 01:02] VITALS: BP 117/71; PULSE 100; RESP 14; TEMP 36.8; O2SAT 100
--- OUTSIDE RECORDS SUMMARY | 2024-11-12 01:05 | XMS_ITS | Clinical Summary ---
Author Organization [facility] Address [address] [place] [address]. [place] [address] [place] [address] Care Team Providers Care Manager Data Center Name Role Phone Unavailable Primary Care Provider Unavailabl e Encounters Date Type Department Care Team Description 10/07/2024 3:52 PM CITY MANAGER - 10/07/2024 11:59 PM CITY MANAGER Hospital Encounter [facility] [place] [address] Juan José Reid MD Discharge Disposition: Home or Self Care (Routine Discharge) from Last 3 Months Social History Tobacco Use Types Packs/Day Years Used Date Smoking Tobacco: Never Assessed Comments Unknown Sex and Gender Information Value Date Recorded Sex Assigned at Not on file Legal Sex Female 3:50 PM CITY MANAGER Gender Identity Not on file Sexual Orientation [...] Diagnosis Comments PATHOLOGY Routine 10/07/2024 12:00 AM CITY MANAGER from Last 3 Months Results * Pathology (10/07/2024 12:00 AM CITY MANAGER) PATHOLOGY [facility] ? Department of Laboratory Medicine ?[address] [facility] [address] ?[place] [address] ? , extension [phone] ? Pathology Report ? Surgical Pathology Report Name: LEE CHI ? Specimen #: [id number] Age: 2 1970 (Age: 53) ? Location: [facility] Sex: F ?Procedure Date: 10/07/2024 Hospital #: [id number] ?Date Received: 10/10/2024 Date Reported: 10/13/2024 Provider: [...] Gross examination (when applicable) was performed at [facility], [address] [place] [address]. This case was interpreted and signed out at [facility], [address] [place] [address]. ?? Electronically Signed Out ? ELSI TAPIA MD [facility] 10/07/2024 10/10/2024 12: 10 PM CITY MANAGER Comment:Mouth, cyst Juan José Reid MD PATHOLOGY/CYTOLOGY ORDERABLES Final Result [facility] [address] [place] [address], [id number] from Last 3 Months
== END 2024-11-12 01:14 | disposition home or self-care (01) ==
LOC: ANHED 11-12 01:03
PROVIDERS: Emergency Provider Emergency Medicine; PCP Family Medicine
DX: R10.13 Epigastric pain (principal); Z79.899 Other long term (current) drug therapy
CPT/HCPCS: 36415; 80053; 81001; 81025; 83690; 85025; 99283

== ENCOUNTER 2024-11-18 09:35 | Outpatient (CLI) | payer OTHER, SELFPAY ==
[2024-11-18 09:58] LABS: Hematocrit 33.7 % (37.0-47.0); Hemoglobin 11.1 g/dL (12.0-15.0); Mean Corpuscular HGB Conc 32.9 g/dl (32-36); Mean Corpuscular Hemoglobin 32.7 pg (26-34); Mean Corpuscular Volume 99.4 fl (80-100); Mean Platelet Volume 9.2 fl (7.4-10.4); Platelet Count Result 255 k/mm3 (150-375); Red Blood Count 3.39 M/mm3 (4.2-5.4); Red Cell Distribution Width 11.9 % (11.5-14.5); White Blood Count 7.7 K/mm3 (4.5-10.0)
--- OUTSIDE RECORDS SUMMARY | 2024-11-18 10:11 | XMS_ITS | Clinical Summary ---
Author Organization [facility] Address [address] [place] [address] Care Team Providers Care Wire Bender Name Role Phone Unavailable Primary Care Provider Unavailabl e Encounters Date Type Department Care Team Description 10/07/2024 3:52 PM APPRAISAL ANALYST - 10/07/2024 11:59 PM APPRAISAL ANALYST Hospital Encounter [facility] [place] [address] Juan José Reid MD Discharge Disposition: Home or Self Care (Routine Discharge) from Last 3 Months Social History Tobacco Use Types Packs/Day Years Used Date Smoking Tobacco: Never Assessed Comments Unknown Sex and Gender Information Value Date Recorded Sex Assigned at Not on file Legal Sex Female 3:50 PM APPRAISAL ANALYST Gender Identity Not on file Sexual Orientation [...] Diagnosis Comments PATHOLOGY Routine 10/07/2024 12:00 AM APPRAISAL ANALYST from Last 3 Months Results * Pathology (10/07/2024 12:00 AM APPRAISAL ANALYST) PATHOLOGY [facility] Department of Laboratory Medicine [address] [place] [address] , extension [phone] Pathology Report Surgical Pathology Report Name: LEE CHI Specimen #: [id number] Age: 2 1970 (Age: 53) Location: [facility] Sex: F Procedure Date: 10/07/2024 Hospital #: [id number] Date Received: 10/10/2024 Date Reported: 10/13/2024 Provider: JUAN JOSÉ REID MD Source: Mouth, cyst Clinical History: Multiple oral lesions. 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 IC: JOY Gross Description: Received in formalin, labeled with the patient's name and date of and as oral lesions are 2 pieces of nodular white-nino tissue 0.3 and 0.4 cm. The base is identified on one of the pieces and inked black. This piece is bisected. These pieces are entirely submitted in cassette 1. Also within the specimen container are 2 additional firm white nodules 0.5 and 0.7 cm. The base is identified and inked black on both of these pieces. They are both bisected and entirely submitted in cassette 2. Gross examination (when applicable) was performed at [facility], [address] [place] [address]. This case was interpreted and signed out at [facility], [address] [place] [address]. Electronically Signed Out ELSI TAPIA MD [facility] 10/07/2024 10/10/2024 12: 10 PM APPRAISAL ANALYST Comment:Mouth, cyst Juan José Reid MD PATHOLOGY/CYTOLOGY ORDERABLES Final Result [facility] [address] [place] [address], [id number] from Last 3 Months
[2024-11-18 10:12] LABS: Alanine Aminotransferase 27 U/L (6-35); Alkaline Phosphatase 105 U/L (38-126); Anion Gap 10 mmol/L (4-12); Aspartate Amino Transferase 25 U/L (14-36); Bilirubin,Total 0.6 mg/dL (0.2-1.3); Blood Urea Nitrogen 14 mg/dL (7-17); Calcium 8.8 mg/dL (8.4-10.2); Carbon Dioxide 27 mmol/L (22-30); Chloride 103 mmol/L (98-107); Cholesterol 188 mg/dL (0-200); Estimated Glomerular Filt Rate > 60; Glucose 93 mg/dL (65-110); HDL Direct 50 mg/dL; Sodium 140 mmol/L (137-145); Triglycerides 58 mg/dL (<150)
[2024-11-18 10:23] LABS: LDL Cholesterol Direct 104 mg/dL
[2024-11-18 10:36] LABS: Vitamin D 25 Hydroxy 52.6 ng/mL
[2024-11-18 10:44] LABS: Thyroid Stimulating Hormone 0.655 uIU/mL (0.465-4.680)
== END 2024-11-18 09:36 | disposition home or self-care (01) ==
LOC: ANHLAB 09:36
PROVIDERS: PCP Family Medicine; Visit Provider Nurse Practitioner
DX: Z00.00 Encounter for general adult medical examination without abnormal findings (principal); E55.9 Vitamin D deficiency, unspecified; E53.8 Deficiency of other specified B group vitamins
CPT/HCPCS: 36415; 80053; 80061; 82306; 82607; 84443; 85027

== ENCOUNTER 2024-11-21 10:48 | Outpatient (CLI) | payer OTHER, SELFPAY ==
[2024-11-21 13:40] LABS: Influenza A QL RT-PCR Negative (Negative); Influenza B QL RT-PCR Negative (Negative); RSV RNA, RT-PCR Negative (Negative); SARS-CoV-2 RNA PCR Negative (Negative)
== END 2024-11-21 10:49 | disposition home or self-care (01) ==
LOC: ANHGOSHLAB 10:49
PROVIDERS: PCP Family Medicine; Visit Provider Nurse Practitioner
DX: R50.9 Fever, unspecified (principal); Z20.822 Contact with and (suspected) exposure to COVID-19
CPT/HCPCS: 87637

== ENCOUNTER 2024-11-22 09:24 | Outpatient (CLI) | payer OTHER, SELFPAY ==
--- NOTE | ~2024-11-22 | US_ITS ---
Limited Abdominal Sonogram: Real-time sonographic imaging of the right upper quadrant was performed. Clinical History: Gallbladder disease Findings: The liver appears echogenic, with no evidence of mass lesion or bile duct dilatation. Main portal vein demonstrates normal direction of flow. The gallbladder is well distended, and contains e chogenic, shadowing gallstone. Gallbladder wall mildly thickened up to 5 mm. The common bile duct jacinto sures 6 mm. The visualized pancreas, aorta, and IVC are unremarkable. Impression: Cholelithiasis. Mild gallbladder wall thickening could indicate acute cholecystitis. Correlate clinic ally. Consider HIDA scan as indicated. Diffuse fatty infiltration of the liver. Reviewed, dictated and finalized at location [facility]. GING MANIPULATOR Impression: Cholelithiasis. Mild gallbladder wall thickening could indicate acute cholecyst itis. Correlate clinically. Consider HIDA scan as indicated. Diffuse fatty infiltration of the liver.
== END 2024-11-22 09:25 | disposition home or self-care (01) ==
PROVIDERS: PCP Nurse Practitioner; Visit Provider Nurse Practitioner
DX: K76.0 Fatty (change of) liver, not elsewhere classified (principal); K80.20 Calculus of gallbladder without cholecystitis without obstruction
CPT/HCPCS: 76705

== ENCOUNTER 2024-11-24 08:29 | Outpatient (CLI) | payer OTHER, SELFPAY ==
--- NOTE | ~2024-11-24 | NM_ITS ---
EXAMINATION: NM hepatobiliary wo pharm DATE: 11/24/2024 12:46 INDICATION: Cholelithiasis without acute cholecystitis COMPARISON: None. TECHNIQUE: 4.9 mCi Tc-99m mebrofenin (Choletec) was administered intravenously. Scintigraphic images of the abdomen were obtained for one hour. Additional one-hour and 4 hour delayed scintigrams were o btained in the anterior and right lateral projections. FINDINGS: There is normal clearance of radiotracer from the blood pool. There is homogeneous tracer u ptake by the liver. Activity progresses to the bowel with duodenal and common bile duct activity fir st evident on the 15 minute delayed image. There is progressive filling of the small bowel over the n ext 45 minutes of imaging with no evident gallbladder activity during the first hour of imaging. Smal l amount of activity is seen in the gallbladder on the 4 hour delayed images the majority of activity in the bowels. IMPRESSION: 1. Delayed activity accumulation in the gallbladder which could be seen with chronic cholecystitis b ut which argues against acute calculus cholecystitis. Reviewed, dictated and finalized at location [facility]. RAM PROFESSIONAL IMPRESSION: 1. Delayed activity accumulation in the gallbladder which could be seen with c hronic cholecystitis but which argues against acute calculus cholecystitis.
--- OUTSIDE RECORDS SUMMARY | 2024-11-24 08:33 | XMS_ITS | Clinical Summary ---
Author Organization [facility] Address [address] [place] [address] Care Team Providers Care Bookmobile Driver Name Role Phone Unavailable Primary Care Provider Unavailabl e Encounters Date Type Department Care Team Description 10/07/2024 3:52 PM POST DOCTORAL RESEARCHER - 10/07/2024 11:59 PM POST DOCTORAL RESEARCHER Hospital Encounter [facility] [place] [address] Juan José Reid MD Discharge Disposition: Home or Self Care (Routine Discharge) from Last 3 Months Social History Tobacco Use Types Packs/Day Years Used Date Smoking Tobacco: Never Assessed Comments Unknown Sex and Gender Information Value Date Recorded Sex Assigned at Not on file Legal Sex Female 3:50 PM POST DOCTORAL RESEARCHER Gender Identity Not on file Sexual Orientation [...] Diagnosis Comments PATHOLOGY Routine 10/07/2024 12:00 AM POST DOCTORAL RESEARCHER from Last 3 Months Results * Pathology (10/07/2024 12:00 AM POST DOCTORAL RESEARCHER) PATHOLOGY [facility] Department of Laboratory Medicine [address] [place] [address] , extension [phone] Pathology Report Surgical Pathology Report Name: LEE CHI Specimen #: [id number] Age: 2 1970 (Age: 53) Location: [facility] Sex: F Procedure Date: 10/07/2024 Hospital #: [id number] Date Received: 10/10/2024 Date Reported: 10/13/2024 Provider: [...] Gross examination (when applicable) was performed at [facility], [address] [place] [address]. This case was interpreted and signed out at [facility], [address] [place] [address]. Electronically Signed Out ELSI TAPIA MD [facility] 10/07/2024 10/10/2024 12: 10 PM POST DOCTORAL RESEARCHER Comment:Mouth, cyst Juan José Reid MD PATHOLOGY/CYTOLOGY ORDERABLES Final Result [facility] [address] [place] [address], [id number] from Last 3 Months
== END 2024-11-24 08:30 | disposition home or self-care (01) ==
LOC: ANHIMG 08:30
PROVIDERS: PCP Nurse Practitioner; Visit Provider Nurse Practitioner
DX: K80.20 Calculus of gallbladder without cholecystitis without obstruction (principal)
CPT/HCPCS: 78226; A9537

== ENCOUNTER 2024-12-05 03:13 | Day surgery (SDC) | payer OTHER, SELFPAY ==
[2024-11-29 10:14] VITALS: BMI 27.8
--- NOTE | 2024-11-29 10:15 | PC.NURSE ---
Report to the Outpatient Waiting Room, entrance under the green pavilion located off [facility], at time _1230_ on date _[id number]_. Planned Procedure Time: _230pm_.? Time changes happen often and if your time is changed the preop area will call you the afternoon before. - You and your visitor will be asked to self-screen and do not enter if you have any COVID symptoms. Please call surgeon if you need to reschedule. - A mask is optional within the hospital at this time. Patients may have clear liquids (water, carbonated beverages, clear teas, apple juice) until 3 hours prior to surgery with a maximum of 20 ounces. - No food from midnight until time of surgery and no smoking, or chewing tobacco (or any form of nicotine). No chewing gum, candy or mints. Take only the following medications with a SIP of water on the morning of surgery: ____Pain and Nausea med ok. DO NOT STOP ANY OF YOUR OTHER PRESCRIPTION MEDICATIONS PRIOR TO SURGERY EXCEPT THE FOLLOWING Hold all vitamins and supplements for 3 days per anesthesiologist. Medications to discontinue per physician Date to take last pblz__[id number]____Mphumjj is going to not take naproxen and understands that narcotic pain medicine or Acetaminophen is OK to take. Please no make-up, nail norwegian, hairspray, perfume, deodorant, or body powder the day of surgery.? No jewelry (including any body piercings) or valuables the day of surgery, leave them at home.? Please take a shower or bath the night before, or the morning of, surgery with an antibacterial soap.? Wear comfortable, loose fitting clothing.? - Jewelry must be removed prior to entering the operating room.? Rings and piercings that are not removed may be cut off. - The hospital will not accept responsibility for valuables.? - Please leave all valuables, including medications, at home the day of surgery. If you are going home after surgery, a licensed hydraulic lift driver must drive you home.? - NO public transportation without another adult if you receive anesthesia. - We recommend that an adult stay with you for 24 hours following discharge. - We also recommend that you do not drive, make important decision, drink alcoholic beverages, or take any drugs that were not prescribed by your health care provider for at least 24 hours after your discharge time. Follow any additional instructions given to you from your surgeon. Telephone instructions given to __Bette___and asked if any additional questions and then verbalized understanding. Patient advised to call surgeon office or pre surgery nurse liaison [phone] if any additional questions.
[2024-12-05] VITALS (11 sets, daily range): BP systolic 103–116; BP diastolic 56–71; PULSE 88–106; RESP 12–18; TEMP 36–36.3; O2SAT 95–100; BMI 28.0
--- OUTSIDE RECORDS SUMMARY | 2024-12-05 03:19 | XMS_ITS | Clinical Summary ---
Author Organization [facility] Address [address] [place] [address] Care Team Providers Care Gaming Host Name Role Phone Unavailable Primary Care Provider Unavailabl e Encounters Date Type Department Care Team Description 10/07/2024 3:52 PM FORESTRY CONSERVATION WORKER - 10/07/2024 11:59 PM FORESTRY CONSERVATION WORKER Hospital Encounter [facility] [place] [address] Juan José Reid MD Discharge Disposition: Home or Self Care (Routine Discharge) from Last 3 Months Social History Tobacco Use Types Packs/Day Years Used Date Smoking Tobacco: Never Assessed Comments Unknown Sex and Gender Information Value Date Recorded Sex Assigned at Not on file Legal Sex Female 3:50 PM FORESTRY CONSERVATION WORKER Gender Identity Not on file Sexual Orientation [...] Diagnosis Comments PATHOLOGY Routine 10/07/2024 12:00 AM FORESTRY CONSERVATION WORKER from Last 3 Months Results * Pathology (10/07/2024 12:00 AM FORESTRY CONSERVATION WORKER) PATHOLOGY [facility] Department of Laboratory Medicine [address] [place] [address] , extension [phone] Pathology Report Surgical Pathology Report Name: LEE CHI Specimen #: [id number] Age: 2 1970 (Age: 53) Location: [facility] Sex: F Procedure Date: 10/07/2024 Hospital #: [id number] Date Received: 10/10/2024 Date Reported: 10/13/2024 Provider: [...] examination (when applicable) was performed at [facility], [address] [place] [address]. This case was interpreted and signed out at [facility], [address] [place] [address]. Electronically Signed Out ELSI TAPIA MD [facility] 10/07/2024 10/10/2024 12: 10 PM FORESTRY CONSERVATION WORKER Comment:Mouth, cyst Juan José Reid MD PATHOLOGY/CYTOLOGY ORDERABLES Final Result [facility] [address] [place] [address], [id number] from Last 3 Months
[2024-12-05] MEDS: ACETAMINOPHEN 500 MG TABLET 1000 MG PO (13:38)
[2024-12-05] MEDS: KETOROLAC 15 MG/ML VIAL (*BKC) IV PUSH (13:38)
[2024-12-05 14:19] LABS: Amylase 60 U/L (30-110)
--- NOTE | 2024-12-05 14:41 | WPDHPUPDATE1 ---
History and Physical Update Update Date/Time: 12/05/24 14:41 History and Physical has been reviewed, including an updated exam of the patient. There are NO changes in the patient's condition. There was an error on the plan and the procedure will be laparoscopic cholecystectomy, possible open (not with cholangiogram). Risks, benefits, and alternatives have been discussed and questions answered. Patient agrees to proceed with procedure.
--- NOTE | 2024-12-05 14:54 | P.PNAN_ITS ---
Anes - Initial Pre Proc Eval Procedure: Operation Date: 12/05/24 14:30 Proposed Procedures p Laparoscopic Cholecystectomy - Kenton Mtz DO Date/Time: 12/05/24 14:54 Surgeon: Kenton Mtz DO Pre Op Diagnosis: acute calculous cholecystitis Patient Data Age: 54 Gender: F Height: 1.68 m Weight: 78.75 kg Last Vital Signs Temp 97.4 F L 12/05/24 13:33 Pulse 98 12/05/24 13:33 BP 109/60 12/05/24 13:33 Pulse Ox 99 12/05/24 13:33 O2 Del Method Room Air 12/05/24 13:33 Allergies Allergy/AdvReac Type Severity Reaction Status Date / Time No Known Allergies Allergy Verified 11/29/24 10:05 Home Medications ?Medication ?Instructions ?Recorded ?Confirmed ?Type loratadine 10 mg tablet (Claritin) 10 mg PO DAILY 08/02/20 11/29/24 History multivitamin,ez-wjvv-subukqvl 1 tablet PO DAILY 08/02/20 11/29/24 History (Complete Multivitamin tablet) naproxen 250 mg tablet 250 mg PO BID PRN Back Pain 08/02/20 11/29/24 History docusate sodium 100 mg PO DAILY PRN Constipation 01/23/21 11/29/24 History cyclobenzaprine 10 mg tablet 10 mg PO DAILY PRN muscle spasm 10/10/24 11/29/24 Rx #90 tabs hydrocodone 5 mg-acetaminophen 325 1 tablet PO Q6H PRN pain #10 tabs 11/12/24 11/29/24 Rx mg tablet ondansetron 4 mg disintegrating 4 mg PO Q6H PRN nausea and 11/12/24 11/29/24 Rx tablet vomiting #10 tabs cholecalciferol (vitamin D3) 25 50 mcg PO DAILY 11/21/24 11/29/24 History mcg (1,000 unit) capsule mecobalamin (vitamin B12) 1,000 1,000 mcg PO .once a week 11/21/24 11/29/24 History mcg chewable tablet paroxetine HCl 30 mg tablet See Rx Instructions .Route 11/24/24 11/29/24 Rx .COMPLEX #90 tabs Laboratory Tests 12/05/24 12:52 Amylase 60 U/L (30-110) Patient hx anesthesia problems: other (Woke up combative after GI anesthetic in the past. ) Family hx anesthesia problems: none Results Review: All pre-operative results and documents have been reviewed as part of the pre- operative evaluation. [facility] Past Medical History Medical History Gallbladder disorder Arthritis Anxiety Allergies Anemia Gestational diabetes No active medical problems Surgical History Surgical History H/O removal of cyst neck Hx of tonsillectomy History of delivery 1987 Family History Family History Father Diabetes mellitus Family history of hypercholesterolemia Hypertension Cerebrovascular accident Mother Cerebrovascular accident Social History Social History Smoking status: Never smoker Additional smoking assessment comments: pt only tried smoking back in her early high school days Alcohol intake: current Alcohol use details: social Substance use: never Lack of Transportation: No Lack of Food: Never True Current Housing: I Have Housing Concerned About Future Housing: No Difficulty Paying Gas/Electric Bills: No Difficulty Paying for Meds: No Currently Unemployed: No Education: Associate Degree Difficulty w/ Childcare or Family Care: No Living arrangements: with family Occupation/Education: occupation Additional occupation/education comments: Registered Nurse Gender identity (if verbalized by the patient): Female Spiritual care concerns: No Anes - Eval Final PreProcedure Day of Procedure 12/05/24 14:54 Patient weight: overweight Lungs: normal air movement Airway: Mallampati scale class II Neurological: alert and oriented Last oral intake: >/= 8 hours ASA classification: II Emergent: no Anesthetic plan: proceed Anesthesia type and monitoring: general ETT and standard monitoring Results Review: All pre-operative results and documents have been reviewed as part of the pre- operative evaluation. BMI 28. Informed Consent: The patient's anesthetic plan and its attendant risks and benefits were discussed with the patient/family/POA. Questions were solicited and answers provided to the satisfaction of the patient/family/POA.
[2024-12-05] MEDS: LACTATED RINGERS 1,000 ML 30 ML IV CONT ×2 (14:57→17:18)
[2024-12-05] MEDS: ceFAZolin 2 GM/D5W 50 ML 2 GM/50 ML BAG IVPB (15:02)
[2024-12-05] MEDS: BUPIVACAINE/EPINEPHRINE 0.5% 30 ML VIAL 15 ML INFILTRATE (15:02)
--- NOTE | 2024-12-05 17:01 | P.OP_ITS ---
Procedure Note - Detailed Date of Procedure 12/05/24 Pre-op Diagnosis acute calculous cholecystitis Post-op Diagnosis Same (Gallbladder hydrops) Procedure Performed Laparoscopic cholecystectomy Surgeon Kenton Mtz, DO Anesthesia General and Local (0.5% bupivacaine) Indications This is a 54-year-old woman who presented with a history of gallstones and biliary colic. She had presented to the emergency department on 11/11/2024 with complaints of epigastric abdominal pain that started earlier that day. She was noted to have an elevated white blood count but she had also recently been on prednisone for a rash. No imaging was done that evening. She then followed up with her PCP and had a gallbladder ultrasound which showed evidence of cholelithiasis and gallbladder wall thickening. A HIDA scan was then also performed which showed delayed filling of the gallbladder consistent with chronic cholecystitis. Discussions were made with the patient about treatment options and decision was made to proceed with laparoscopic cholecystectomy, possible open. Findings Laparoscopic cholecystectomy was performed. The gallbladder was found to have significant pericholecystic adhesions that appeared both acute and chronic. The gallbladder was extensively adhesed making the surgery very difficult. There was omentum as well as the pylorus and duodenum densely adherent around the gallbladder. There was also dense indurated tissue around the neck of the gallbladder and cystic duct which made it very difficult to dissect. The gallbladder had a very large gallstone in the neck of the gallbladder. There was also evidence of gallbladder hydrops with clear mucus bile within the gallbladder. Eventually I was able to identify the cystic duct and obtain a critical view of safety. Due to the dense adhesions and blood loss, decision was made to place a 19 round Song drain and placed the patient in outpatient extended recovery postoperatively. The surgery was much more difficult than a typical laparoscopic cholecystectomy and took 1 hour and 52 minutes which is 2-3 times as long as a typical uncomplicated laparoscopic cholecystectomy. Blood loss was also about 100 mL which is about 5 times as much as an uncomplicated laparoscopic cholecystectomy. Description of Procedure Procedure as well as risks, benefits, and alternatives were discussed with patient. Written consent was obtained and placed in chart prior to procedure. The patient was brought back to surgical suite. Patient was placed in supine position on operating table. Time-out was done to confirm patient and procedure. Patient was then intubated by the anesthesia department. Abdomen was prepped and draped in sterile fashion using chlorhexidine prep. 0.5% bupivacaine with epinephrine was infiltrated at each site of incision. A 5 millimeter incision was made near the umbilicus, and a 5 millimeter Optiview trocar was advanced through the abdominal layers under direct visualization. Once inside the abdominal cavity, carbon dioxide was insufflated to create a pneumoperitoneum. The camera was inserted and the abdomen was inspected. No immediate abnormalities were identified. The patient was placed in reverse Trendelenburg position and rotated slightly to the left. An 11 millimeter incision was made in the subxiphoid region, and an 11 millimeter trocar was inserted under direct visualization. Two 5 millimeter incisions were made in the right upper quadrant, and two 5 millimeter trocars were inserted under direct visualization. Initially the gallbladder was difficult to identify due to omental adhesions around the entire fundus of the gallbladder and caudal edge of the right lobe of the liver. These adhesions were carefully taken down using blunt dissection and hook electrocautery. The gallbladder was then identified and grasped at the fundus and retracted superiorly. I continued to take down the adhesions using blunt dissection and hook electrocautery until I could identify the entire body of the gallbladder and infundibulum. It was then grasped at the infundibulum retracted laterally. Careful dissection around the neck of the gallbladder was performed using blunt dissection with a [place] grasper and hook electrocautery. The cystic duct was identified, and a window was created behind it. The cystic artery was also identified and a window was created behind it. The critical view of safety was identified, visualizing the cystic duct running directly into the neck of the gallbladder, and the cystic artery running directly into the wall of the gallbladder. A 5 millimeter clip glass processing worker was then used to place 2 clips proximally and 1 clip distally on both the cystic duct and cystic artery. They were then both transected using endoscopic scissors. Once safely away from the paul hepatitis, the gallbladder was dissected free from the liver bed using hook electrocautery. Hemostasis was achieved along the way. The gallbladder was removed completely and then removed through the subxiphoid port. The liver bed was then inspected. Hemostasis appeared adequate, and our clips appeared secure. The area was gently irrigated with sterile saline. I then chose to place a 19 round Song drain into the gallbladder fossa and secured this through 1 of the port sites with a 3-0 nylon drain stitch. No other abnormalities were seen. The patient was flattened out in bed, and 1 final inspection was made around the abdominal cavity. The remaining ports were then removed under direct visualization, the camera was removed, and the pneumoperitoneum was released. The fascia of the subxiphoid incision was reapproximated using an 0 Vicryl [id number]-et-rmeic suture. The skin of the incisions was approximated using 4-0 Monocryl subcuticular sutures. Exofin glue was applied on top. The patient was then awakened from anesthesia, extubated, and transferred to recovery. Estimated Blood Loss 100 Drains Yes (19 round Song) Pathology Yes (Gallbladder) Complications No immediate complications Condition Stable Disposition Observation [facility] Billing Surgery - Charge Forward: Surgery Billing
--- NOTE | 2024-12-05 18:30 | SUR.PHASEI ---
Patient meets PACU discharge criteria, unit bed unavailable at this time. Patient placed in extended recovery status.
[2024-12-05] MEDS: LACTATED RINGERS 1,000 ML 100 ML IV CONT (20:35)
[2024-12-05] MEDS: HYDROcodone/acetaminophen (*CRX) 10-325 MG TABLET 1 TAB PO (20:38)
--- NOTE | 2024-12-05 20:43 | ADMGEN ---
This patient, Bette Chi, was admitted to 3 [facility] Surg Room 327-01. Patient/family oriented to hospital policies and general routines including ID bracelet, bed and alarms, visiting hours, pain management, procedures, bathroom and other care routines, personal items, smoking policy, room service/diet, and visiting hours. Information on how to activate the Rapid Response Team has been discussed. Patient/Family are encouraged to report perceived risks to care and to ask questions if they do not understand what they are told or what they should do.
[2024-12-05] MEDS: diphenhydrAMINE HCl INJ 50 MG/ML VIAL 25 MG IV PUSH (21:31)
[2024-12-05] MEDS: metroNIDAZOLE 500 MG/ISO 100ML 500 MG/100 ML BAG 100 MG IVPB (21:31)
[2024-12-06] MEDS: HYDROcodone/acetaminophen (*CRX) 10-325 MG TABLET 1 TAB PO ×3 (01:28→11:41)
[2024-12-06 01:30] VITALS: BP 101/49; PULSE 87; RESP 14; TEMP 36.3; O2SAT 100
[2024-12-06 05:30] VITALS: BP 97/49; PULSE 89; RESP 14; TEMP 36.3; O2SAT 100
[2024-12-06] MEDS: diphenhydrAMINE HCl INJ 50 MG/ML VIAL 25 MG IV PUSH (05:35)
[2024-12-06] MEDS: metroNIDAZOLE 500 MG/ISO 100ML 500 MG/100 ML BAG 100 MG IVPB (05:46)
[2024-12-06 06:39] LABS: Hematocrit 30.2 % (37.0-47.0); Hemoglobin 9.6 g/dL (12.0-15.0); Mean Corpuscular HGB Conc 31.8 g/dl (32-36); Mean Corpuscular Hemoglobin 31.6 pg (26-34); Mean Corpuscular Volume 99.3 fl (80-100); Mean Platelet Volume 8.7 fl (7.4-10.4); Platelet Count Result 320 k/mm3 (150-375); Red Blood Count 3.04 M/mm3 (4.2-5.4); Red Cell Distribution Width 12.6 % (11.5-14.5); White Blood Count 9.5 K/mm3 (4.5-10.0)
[2024-12-06 06:52] LABS: Anion Gap 7 mmol/L (4-12); Blood Urea Nitrogen 11 mg/dL (7-17); Calcium 8.3 mg/dL (8.4-10.2); Carbon Dioxide 28 mmol/L (22-30); Chloride 102 mmol/L (98-107); Estimated CRCL calculation 113 ml/min; Estimated Glomerular Filt Rate > 60; Glucose 83 mg/dL (65-110); Potassium 3.6 mmol/L (3.4-5.0); Sodium 137 mmol/L (137-145)
[2024-12-06 08:05] VITALS: BP 110/70; PULSE 82; RESP 15; TEMP 36.6; O2SAT 100
[2024-12-06] MEDS: PARoxetine 10 MG TABLET 30 MG PO (09:25)
[2024-12-06] MEDS: ENOXAPARIN 40 MG/0.4 ML SYRINGE SUB-Q (09:25)
[2024-12-06] MEDS: LORATADINE 10 MG TABLET PO (09:25)
--- NOTE | 2024-12-06 12:50 | P.PNGS_ITS ---
Progress Note: A&P Assessment and Plan (1) Acute calculous cholecystitis: Code(s): K80.00 - Calculus of gallbladder with acute cholecystitis without obstruction Status: Acute Assessment and Plan: * Doing well POD#1 * No signs of infection or bleeding * Remove KEMAL drain and will discharge home today * Will discharge on Augmentin x 7 days * Discharge instructions discussed with patient. Subjective Subjective Date/Time Seen: 12/06/24 12:50 Interval history: Doing well on POD#1. Minimal drain output since surgery. Tolerating diet. Pain controlled. Exam Resp: Effort & Inspection: normal respiratory effort Auscultation: clear to auscultation bilaterally Cardio: Rate: regular rate Rhythm: regular rhythm Heart sounds: S1 normal heart sound present and S2 normal heart sound present GI: Inspection: non-distended, incision (intact with glue) and other (KEMAL with minimal serosanguinous output) GI Palp: Yes Soft to palpation, Yes Tenderness to palpation present (GI) (incisional) and No Guarding due to palpation present (GI) Objective Data Vital Signs Vital Signs: Vital Signs - 24 hr 12/05/24 13:33 12/05/24 17:18 12/05/24 17:30 Temperature 97.4 F L 97.0 F L Pulse Rate 98 88 91 Respiratory Rate 14 12 Blood Pressure 109/60 115/62 110/65 Pulse Oximetry 99 100 100 Oxygen Delivery Room Air Simple Face Mask Simple Face Mask Oxygen Flow Rate 8 8 12/05/24 17:45 12/05/24 18:00 12/05/24 18:15 Temperature Pulse Rate 92 94 106 H Respiratory Rate 12 12 12 Blood Pressure 116/70 105/64 103/56 L Pulse Oximetry 100 100 98 Oxygen Delivery Simple Face Mask Simple Face Mask Room Air Oxygen Flow Rate 8 8 12/05/24 18:30 12/05/24 19:00 12/05/24 19:30 Temperature Pulse Rate 105 H 98 99 Respiratory Rate 16 16 18 Blood Pressure 104/63 112/71 106/70 Pulse Oximetry 95 97 96 Oxygen Delivery Room Air Room Air Room Air Oxygen Flow Rate 12/05/24 19:42 12/05/24 20:30 12/06/24 01:30 Temperature 96.8 F L 97.4 F L Pulse Rate 96 100 87 Respiratory Rate 14 16 14 Blood Pressure 113/68 111/63 101/49 L Pulse Oximetry 99 99 100 Oxygen Delivery Room Air Oxygen Flow Rate 12/06/24 05:30 12/06/24 08:00 12/06/24 08:05 Temperature 97.3 F L 97.9 F Pulse Rate 89 82 Respiratory Rate 14 15 Blood Pressure 97/49 L 110/70 Pulse Oximetry 100 100 Oxygen Delivery Room Air Oxygen Flow Rate Intake/Output Intake/Output: Intake & Output 12/03/24 12/04/24 12/05/24 12/06/24 23:59 23:59 23:59 23:59 Intake Total 700 578 Output Total 30 Balance 700 548 Meds/Results Medications: Active Medications Generic Name Dose Route Start Last Admin Trade Name Freq PRN Reason Stop Dose Admin Hydrocodone Bitart/Acetaminophen 1 tab 12/05/24 19:45 Hydrocodone/Acetaminophen (*Crx) 5-325 Mg Tablet PO Q4H PRN Pain Rated 4-6 Hydrocodone Bitart/Acetaminophen 1 tab 12/05/24 19:45 12/06/24 11:41 Hydrocodone/Acetaminophen (*Crx) 10-325 Mg Tablet PO 1 tab Q4H PRN Administration Pain Rated 7-10 Cyclobenzaprine HCl 10 mg 12/05/24 19:45 Cyclobenzaprine Hcl 10 Mg Tablet PO DAILY PRN muscle spasm Diphenhydramine HCl 25 mg 12/05/24 19:45 12/06/24 05:35 Diphenhydramine Hcl Inj 50 Mg/Ml Vial IV PUSH 25 mg Q6H PRN Administration Itching Enoxaparin Sodium 40 mg 12/06/24 09:00 12/06/24 09:25 Enoxaparin 40 Mg/0.4 Ml Syringe SUB-Q 40 mg DAILY YOVANA Administration Hydromorphone HCl 1 mg 12/05/24 19:51 Hydromorphone Hcl Inj (*Crx) 2 Mg/Ml Vial IV PUSH Q2H PRN Breakthrough Pain Rated 7-10 or NPO Hydromorphone HCl 0.5 mg 12/05/24 19:51 Hydromorphone Hcl Inj (*Crx) 2 Mg/Ml Vial IV PUSH Q2H PRN Breakthrough Pain Rated 4-6 or NPO Ibuprofen 800 mg in 200 mls @ 400 mls/hr 12/05/24 19:45 Caldolor 800 Mg/200 Ml IVPB Q6H PRN Breakthrough Pain Rated 1-3 or NPO Ceftriaxone Sodium 1 gm in 50 mls @ 100 mls/hr 12/05/24 21:00 12/05/24 21:05 Rocephin 1 Gm/Ns 50 Ml IVPB Infused Q24H YOVANA Infusion Metronidazole 500 mg in 100 mls @ 100 mls/hr 12/05/24 22:00 12/06/24 06:46 Flagyl 500 Mg/Iso Soln 100 Ml IVPB Infused Q8H YOVANA Infusion Ibuprofen 600 mg 12/05/24 19:45 Ibuprofen 600 Mg Tablet PO Q6H PRN Pain Rated 1-3 Loratadine 10 mg 12/06/24 09:00 12/06/24 09:25 Loratadine 10 Mg Tablet PO 10 mg DAILY YOVANA Administration Naloxone HCl 0.1 mg 12/05/24 19:45 Naloxone Hcl 0.4 Mg/Ml Vial IV PUSH Q2M PRN Opiate Reversal Ondansetron HCl 4 mg 12/05/24 19:45 Ondansetron Inj 4 Mg/2 Ml Vial IV PUSH Q4H PRN Nausea And Vomiting Paroxetine HCl 30 mg 12/06/24 09:00 12/06/24 09:25 Paroxetine 10 Mg Tablet PO 30 mg DAILY YOVANA Administration Polyethylene Glycol 17 gm 12/06/24 09:00 12/06/24 09:24 Polyethylene Glycol 3350 17 Gm Powd.Pack PO Not Given QAM [facility] Labs Labs: Laboratory Results - last 24 hr 12/05/24 12/06/24 12:52 06:15 WBC 9.5 RBC 3.04 L Hgb 9.6 L Hct 30.2 L MCV 99.3 MCH 31.6 MCHC 31.8 L RDW 12.6 Plt Count 320 MPV 8.7 Sodium 137 Potassium 3.6 Chloride 102 Carbon Dioxide 28 Anion Gap 7 BUN 11 Creatinine 0.49 L Estim Creat Clear Calc 113 Estimated GFR > 60 Glucose 83 Calcium 8.3 L Amylase 60
== END 2024-12-06 14:30 | disposition home or self-care (01) ==
LOC: ANHSURGERY 12:02 → ANH3MEDSUR 19:47
PROVIDERS: PCP Nurse Practitioner; Visit Provider Surgery
PROC: 0FT44ZZ Resection of Gallbladder, Percutaneous Endoscopic Approach (ICD-10-PCS; CPT 47562; principal; 2024-12-05 14:30)
DX: K80.12 Calculus of gallbladder with acute and chronic cholecystitis without obstruction (principal)
CPT/HCPCS: 47562; 36415; 80048; 82150; 85027; 88304; A9270; J0690; J0696; J1100; J1171; J1200; J1650; J1836; J1885; J2003; J2250; J2405; J2704; J3010; J7030; J7120